=== PATIENT | female | born 1950 | race Caucasian/White ===

== ENCOUNTER → 2016-10-19 | Outpatient (CLI) | payer MEDICARE, OTHER ==
[~2016-10-19] MED LIST: ALBU8CC IH; ASPI-586 PO; BUDE10.2 IH; HCT25T PO; LEVO25TA5 PO; TIOT4MIS5 IH; VALS160T2 PO; [UNRECOGNIZED DRUG - CODE] PO
--- NOTE | 2016-10-19 14:44 | Diagnostic Imaging Report ---
PROCEDURE: CT chest without contrast. TECHNIQUE: Multiple contiguous axial images were obtained through the chest without the use of intravenous contrast. INDICATION: Followup of left lower lobe pulmonary nodule. Comparison with 10/12/2015 and 01/02/2016. FINDINGS: There is no evidence of a pulmonary nodule in the left lower lobe. There is a tiny 2 mm nodule in the right lower lobe laterally, page 45 series 3. This was present previously and has not changed since September 2015. There is mild atelectasis in the lingula which is also unchanged. There is no evidence of bronchiectasis. There is no mediastinal or hilar adenopathy of pathologic size. No pleural effusions or pericardial effusion. IMPRESSION: 1. 2 mm micronodule in the right lower lobe stable since September 2015. 2. The left lower lobe pulmonary nodule is not present. 3. Mild atelectasis in the lingula unchanged. Dictated by: Dictated on workstation # [id number]
== END ==
LOC: RAD 14:01
PROVIDERS: ATTEND Family Medicine
DX: R91.1 Solitary pulmonary nodule (principal)
CPT/HCPCS: 71250